=== PATIENT | male | born 1970 | race Caucasian/White ===

== ENCOUNTER 2019-02-11 00:47 | Emergency (ER) | payer BC ==
--- NOTE | 2019-02-11 01:05 | ED ---
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 Patient was at the hospital ([facility]) at home in [place], [place] on 02/05/19 for a similar episode. He was not admitted. In the room, the patient reports his chest pressure has subsided. Patient recently increased his cholesterol medication. Patient arrived in [place] yesterday, driving from [place]. Today, patient was at [employer], but he reports he was hydrating. He felt fine today up until being woken up by the chest tightness. PMHx of HCM. He recently had a nuclear stress test that was equivocal, followed by a cardiac cath, which was said to be completely normal. The patient rates the pain 6/10 in severity at worst and a 2/10 in the room. Symptoms aggravated by nothing. Symptoms alleviated by baby aspirin. Patient reports nausea. Patient denies vomiting. 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 Negative: Vomiting - Allergy/Home Medications Allergies/Adverse Reactions: Allergies Allergy/AdvReac Type Severity Reaction Status Date / Time No Known Allergies Allergy Verified 02/11/19 01:10 Home Medications: Home Medications Aspirin 81 mg CHEW TAB* 81 mg PO DAILY 02/11/19 [History Confirmed 02/11/19] Crestor 40 mg PO DAILY 02/11/19 [History Confirmed 02/11/19] Metoprolol Succinate 25 mg PO DAILY 02/11/19 [History Confirmed 02/11/19] PMH/Surg Hx/FS Hx/Imm Hx Cardiovascular History: Reports: Hx Hypercholesterolemia, Other Cardiovascular Problems/Disorders - HCM Respiratory History: Denies: Hx Asthma, Hx Chronic Obstructive Pulmonary Disease (COPD) Sensory History: Denies: Hx Legally Blind, Hx Deafness Opthamlomology History: Denies: Hx Legally Blind EENT History: Denies: Hx Deafness - Surgical History Surgery Procedure, Year, and Place: cardiac cath Infectious Disease History: No Infectious Disease History: Denies: Traveled Outside the [place] in Last 30 Days - Family History Known Family History: Positive: Non-Contributory - Social History Alcohol Use: Occasionally Hx Substance Use: No Substance Use Type: Reports: None Hx Tobacco Use: No Smoking Status (MU): Never Smoked Tobacco Review of Systems Positive: Chest Pain - Tightness, mid-sternal Positive: Shortness Of Breath Positive: Nausea. Negative: Vomiting All Other Systems Reviewed And Are Negative: Yes Physical Exam - Summary Physical Exam Summary: Appearance: Well-appearing, Well-nourished, lying in bed comfortable Skin: Warm, dry, no obvious rash Eyes: sclera anicteric, no conjunctival pallor ENT: mucous membranes moist Neck: deferred Respiratory: No signs of respiratory distress Cardiovascular: Appears well perfused, pulses are nml Abdomen: deferred Musculoskeletal: Moving all 4 extremities without obvious discomfort Neurological: Awake and alert, mentation is normal, speech is fluent and appropriate Psychiatric: affect is normal, does not appear anxious or depressed Triage Information Reviewed: Yes Vital Signs On Initial Exam: Initial Vitals Temp Pulse Resp BP Pulse Ox 98 F 70 18 155/84 100 02/11/19 00:50 02/11/19 00:50 02/11/19 00:50 02/11/19 00:50 02/11/19 00:50 Vital Signs Reviewed: Yes Diagnostics - Vital Signs Vital Signs Temp Pulse Resp BP Pulse Ox 02/11/19 00:53 72 100 02/11/19 00:51 68 155/84 100 02/11/19 00:50 98 F 70 18 155/84 100 - Laboratory Result Diagrams: 02/11/19 02:51 02/11/19 02:51 Lab Statement: Any lab studies that have been ordered have been reviewed, and results considered in the medical decision making process. - EKG 0049 Cardiac Rate: NL - 68 BPM EKG Rhythm: Sinus Rhythm Summary of EKG Findings: NSR at 68 BPM, ST & T wave ischemic changes, depressed T wave inversion, no STEMI. Re-Evaluation - Re-Evaluation First Eval Re-Evaluation Time: 04:45 Comment: Discussed results with patient. Patient states he is anxious, so I will give Ativan. Second Eval Re-Evaluation Time: 05:30 Comment: Discussed results with patient. Patient will be discharged home with dx of chest pain. Patient understands and agrees with this plan. 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 EKG at 0049 revealed NSR at 68 BPM, ST & T wave ischemic changes, depressed T wave inversion, no STEMI. Blood work revealed Hgb 13.9, HCt 38, MCH 32, MCHC 37, platelets 147, sodium 128, chloride 97, glucose 106, total protein 6.1. In the ED course, patient received Ativan. Troponin at 0251 was 0.03 and troponin at 0455 was 0.02. Patient will be discharged home with dx of chest pain. Patient understands and agrees with this plan. - Diagnoses Provider Diagnoses: Chest pain Discharge - Sign-Out/Discharge Documenting (check all that apply): Patient Departure - Discharge Patient Received Moderate/Deep Sedation with Procedure: No - Discharge Plan Condition: Good Disposition: HOME Prescriptions: Omeprazole CAP (NF) [Prilosec CAP* 20 MG] 20 mg PO BEDTIME #30 Patient Education Materials: Chest Pain (ED) Referrals: No Primary Care Phys,NOPCP [Primary Care Provider] - Additional Instructions: Your tests tonight did not show any sign of an acute cardiac issue as the cause of your discomfort. A common mimic of angina is problems to do with the esophagus, such as reflux or esophageal spasm. I think an empiric trial of an acid blocking medication would be a reasonable step at this point. Certainly a recent cardiac catheterization that looks clean is also a reassuring piece of information also. - Billing Disposition and Condition Condition: GOOD Disposition: Home - Attestation Statements Document Initiated by Scribe: Yes Documenting Scribe: Hernesto Fish Provider For Whom Tonya is Documenting (Include Credential): Byron Conrad MD Scribe Attestation: I, Hernesto Fish, scribed for Byron Conrad MD on 02/12/19 at 0431. Scribe Documentation Reviewed: Yes Provider Attestation: The documentation as recorded by the scribe, Hernesto Fish accurately reflects the service I personally performed and the decisions made by me, Byron Conrad MD Status of Scribsteven Document: Viewed
[2019-02-11 03:31] LABS: ABS Eosinophils 0.1 10^3/ul (0-0.6); ABS Lymphocytes 1.5 10^3/ul (1.0-4.8); ABS Monocytes 0.5 10^3/ul (0-0.8); ABS Neutrophils 4.1 10^3/ul (1.5-7.7); Eosinophil % 1.2 %; Hematocrit 38 % (42-52); Hemoglobin 13.9 g/dL (14.0-18.0); Lymphocyte % 24.1 %; Mean Corpuscular HGB Conc 37 g/dL (31-36); Mean Corpuscular Hemoglobin 32 pg (27-31); Mean Corpuscular Volume 88 fL (80-94); Mean Platelet Volume 7.8 fL (7.4-10.4); Nucleated Red Blood Cells % 0.1; Platelet Count 147 10^3/uL (150-450); Red Blood Count 4.32 10^6 /uL (4.18-5.48); Red Cell Distribution Width 14 % (10-15); White Blood Count 6.2 10^3/uL (3.5-10.8)
[2019-02-11 03:32] LABS: Albumin/Globulin Ratio 1.9 (1-3); BUN/Creatinine Ratio 10.9 (8-20); Calcium 8.6 mg/dL (8.6-10.3); EGFR African American 105.8 (>60); EGFR Non-African American 87.4 (>60); Globulin 2.1 g/dL (2-4); Potassium 3.8 mmol/L (3.5-5.0); Total Bilirubin 0.5 mg/dL (0.2-1.0); Total Protein 6.1 g/dL (6.4-8.9)
[2019-02-11 03:33] LABS: INR 1.08 (0.82-1.09); Troponin I 0.03 ng/mL (<0.04)
[2019-02-11] MEDS ORDERED: LORazepam TAB(*) 1 MG PO ONE (04:59)
[2019-02-11 05:52] VITALS: BP 103/79
== END 2019-02-11 05:52 | disposition home or self-care (01) ==
LOC: ED 00:47
DX: R07.89 Other chest pain (principal); I51.7 Cardiomegaly; R06.02 Shortness of breath; R11.0 Nausea; E78.00 Pure hypercholesterolemia, unspecified; Z79.82 Long term (current) use of aspirin
CPT/HCPCS: 36415; 80053; 84484; 85025; 85610; 93005; 99284; A9270-GY